=== PATIENT | female | born 1955 | race Caucasian/White ===

== ENCOUNTER 2018-08-29 14:13 | Emergency (ER) | payer BC, SELFPAY ==
--- NOTE | 2018-08-29 14:20 | W.ED.GENAD ---
Discharge Plan Disposition Patient Disposition: HOME Condition: Stable Discharge Details Chief Complaint: RashLesion Clinical Impression: Scabies Reason For Visit: rash Primary Care Provider: Avila Basurto ED Provider: Cassandra Almaraz Home Meds and New Rx's Prescriptions: New prednisone 50 mg tablet 50 mg PO DAILY Qty: 4 RF: 0 Discharge Instructions Instructions: Prednisone (By mouth), Permethrin (On the skin), Scabies (ED) Additional Instructions: Please return immediately to the emergency department if you develop any new or worsening symptoms or if you become otherwise concerned. It is extremely important that you make an appointment to be seen by you primary care doctor within the next 1-2 weeks in follow-up for this visit. 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 Papular rash to neck and scalp without vesicles. Suspect scabies. Exam/hx not c/w HSV, zoster, SJS, TEN, sepsis, other acute life threatening process. I did discuss the use of permethrin with ID at [facility], who recommended permethrin for scabies to scalp as opposed to other agents. Plan for permethrin, RX prednisone for symptomatic tx, outpt f/u. I had a lengthy dicsussion with the pt re: RTED precautions and importance of outpt f/u with PCP. Pt verbalized understanding of plan. Medical Records Medical records reviewed: Yes I reviewed the patient's medical records. HPI General Mode of arrival: ambulatory. Date/Time Provider Initiated Documentation: 08/29/18 14:20. Limitations to Documentation: no limitations. Information obtained by: patient, RN notes reviewed and old records reviewed. HPI Narrative: Tatiana Vora is a 62-year-old woman without history of major medical problems presenting to the emergency department with itching of her head and neck. Patient reports that approximately 5 days ago she developed itching of the back of her neck and of her posterior scalp, which has spread over her entire scalp. She reports itching is very intense. She has had a rash at the back of her neck and on her scalp in the area that is itchy. Rash is not painful and there is no drainage. She has had no fevers, no pain, no shortness of breath, no cough, no nausea/vomiting/diarrhea, no other rash. She feels otherwise very well and in her usual state of health. Eating and drinking as usual. No recent travel. 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 Related Data Home Medications Medication Instructions Recorded Confirmed prednisone 50 mg PO DAILY #4 tab 08/29/18 Previous Rx's Medication Instructions Recorded prednisone 50 mg PO DAILY #4 tab 08/29/18 Allergies Allergy/AdvReac Type Severity Reaction Status Date / Time venom-honey bee Allergy Unverified 08/29/18 14:31 [bee venom (honey bee)] Review of Systems Review of Systems Constitutional: denies fevers Eyes: denies eye pain ENT: denies facial pain, dental pain, sore throat Cardiovascular: denies chest pain Respiratory: denies SOB, cough GI: denies abdominal pain, vomiting, diarrhea : denies flank pain MSK: denies back pain, neck pain, arthralgias, myalgias Skin: reports rash Neuro: denies headaches, lightheadedness, weakness PFSH Social History Smoking/Tobacco Use Status: Never Exam Narrative Exam Narrative: Constitutional: well and [id number], pleasant, conversing normally HENT: head atraumatic, normocephalic normal inspection, mucous membranes moist Eyes: conjunctiva normal, sclera normal, pupils 3mm b/l Neck: no stridor, normal ROM, trachea midline Chest: normal inspection Resp: normal work of breathing Cardio: normal rate, normal rhythm Back: normal inspection, no rash Skin: warm, dry, normal color, papular rash in clusters/linear pattern to posterior neck and scalp. no vesicles. No mucous membrane invovlement. No surrounding erythema, no edema, no drainage. Neuro: alert, not altered, grossly non-focal, normal tone Ext: no edema Psych: normal mood, normal affect, normal behavior
[2018-08-29 14:22] VITALS: BP 124/76; PULSE 70; RESP 18; TEMP 36.6; O2SAT 100
[2018-08-29] MEDS: predniSONE 20 MG TAB 60 MG PO (16:29)
== END 2018-08-29 15:53 | disposition home or self-care (01) ==
LOC: ER 16:33
PROVIDERS: Emergency Provider Student in an Organized Health Care Education/Training Program; PCP Internal Medicine
DX: B86 Scabies (principal)
CPT/HCPCS: 99283; J7512

== ENCOUNTER 2019-06-25 18:46 | Emergency (ER) | payer BC, SELFPAY ==
[2019-06-25 18:49] VITALS: BP 134/75; PULSE 67; RESP 16; TEMP 37; O2SAT 99
--- NOTE | 2019-06-25 19:11 | DI.RAD_ITS ---
EXAM: XR HAND LT COMPLETE INDICATION: Dog bite, over fifth metacarpal. COMPARISON: No exams were available for comparison TECHNIQUE: 2D digital imaging was performed. FINDINGS: There is no evidence of an acute fracture or dislocation. There is no evidence of a foreign body. No te is made of mild soft tissue swelling over the region of the proximal interphalangeal joint of the ring finger.
--- NOTE | 2019-06-25 19:58 | DI.VRAD_ITS ---
PROCEDURE INFORMATION: Exam: XR Left Hand Exam date and time: 06/25/2019 19:39 Clinical history: 63 years old, female; Injury or trauma; Injury history: Dog bite; Initial encounter; Hand; Left; Injury date: Over 5th metacarpal TECHNIQUE: Imaging protocol: XR Left hand. Views: 3 or more views. COMPARISON: No relevant prior studies available. FINDINGS: Bones/joints: Small chronic densities adjacent to the ulnar styloid are suggestive of old avulsion fractures. Less likely chronic soft tissue trauma. Scattered interphalangeal degenerative changes are seen. First carpal metacarpal degenerative changes. No acute fracture or subluxation. Soft tissues: Benign calcifications in the soft tissues. No radiopaque foreign body or significant emphysema. IMPRESSION: No acute bony pathology. Dictated and Authenticated by: Gely Elizalde MD. Ordering:FRANCISCO Berger MD
[2019-06-25] MEDS: Amoxicillin 875/Clav. 125 TAB PO (20:38)
--- NOTE | 2019-06-25 20:41 | ED.GENADUL_ITS ---
Discharge Plan Disposition Patient Disposition: HOME Condition: Stable Discharge Details Chief Complaint: AnimalBite Clinical Impression: Dog bite of hand Primary Care Provider: Avila Basurto ED Provider: Ab Hensley Home Meds and New Rx's Prescriptions: New amoxicillin-pot clavulanate [Augmentin] 875-125 mg tablet 1 tab PO BID Qty: 10 RF: 0 Discharge Instructions Instructions: Animal Bite (ED) Additional Instructions: Watch for any signs of infection and return immediately if these occur. Otherwise keep wound clean and dry and initial dressing in place for 24 to 48 hours. If wound is healing well you may return in 10 days for suture removal. Stand Alone Forms: Work Release Referrals: [facility] Emergency Dept. [Outside] (In 10 days for suture removal or immediately for any signs of infection) Discharge Data Discharge Date/Time-TO BE ENTERED AT DEPARTURE: 06/25/19 20:50 Medical Decision Making Dog bite to hand approximately 1 hour prior to arrival 2.5 cm laceration. Radiological imaging ordered and is negative, verbal consent for wound closure, injected with 5 mL's of 2% lidocaine locally. Wound thoroughly irrigated and wound was visualized to base in bloodless field and no contamination was noted. Wound was closed with 4-0 Prolene and 3 simple interrupted sutures were placed. Patient placed upon Augmentin twice daily for 5 days, tetanus was updated, and discussed rabies prophylaxis but given domesticated dog that typically lives inside decided to defer this treatment at this time. Tetanus updated. After discussion of diagnosis and plan of care patient has no further needs, questions, or concerns and states clear understanding to return to the emergency department for any worsening symptoms. HPI General Mode of arrival: ambulatory . Date/Time Provider Initiated Documentation: 06/25/19 18:53 . Limitations to Documentation: no limitations . Information obtained by: patient and RN notes reviewed . History of Present Illness 63 year old F presents to the emergency department with the chief complaint of Dog bite, left hand, described as moderate, with intensity rated at 7. Quality is described as aching and sharp, and is localized to the left and upper extremity. Patient started experiencing this hour(s) (1) and it has been constant. No relieving factors improve symptom(s), No exacerbating factors reported . Patient notes no other symptoms.. Patient did receive the following treatments prior to arrival, none Related Data Home Medications Medication Instructions Recorded Confirmed amoxicillin-pot clavulanate 1 tab PO BID #10 tab 06/25/19 [Augmentin] Previous Rx's Medication Instructions Recorded amoxicillin-pot clavulanate 1 tab PO BID #10 tab 06/25/19 [Augmentin] Allergies Allergy/AdvReac Type Severity Reaction Status Date / Time venom-honey bee Allergy Unverified 08/29/18 14:31 [bee venom (honey bee)] General Stated Complaint: AnimalBite BYRON: 4 Review of Systems Cardiovascular Cardiovascular: Denies syncope and Denies lightheadedness Musculoskeletal Musculoskeletal: Denies deformity, Denies limited range of motion and Denies numbness Integumentary/Breasts Skin/Breast: Reports as per HPI Neurologic Neurologic: Denies syncope, Denies numbness and Denies paresthesias [facility] Social History Smoking/Tobacco Use Status: Never Alcohol Intake: current Drug use: Never Substance use type: does not use Do you feel safe at home: Yes Do you feel safe in your relationship?: Yes Exam Const General: cooperative and no acute distress Orientation: alert, awake and oriented x3 Limitations: mental status not altered Resp Effort & Inspection: normal respiratory effort and able to speak in complete sentences Cardio Rate: regular rate Rhythm: regular rhythm Neuro General: alert and awake Extrem General: normal exam except as noted Left upper extremity: hand Details: normal capillary refill, neuromotor exam normal, neurosensory exam normal, tendon exam normal, normal ROM of fingers and laceration (2.5cm) Course Vital Signs Vital signs: Vital Signs Temperature 37 C 06/25/19 18:49 Pulse 67 06/25/19 18:49 Respiratory Rate 16 06/25/19 18:49 Blood Pressure 134/75 06/25/19 18:49 Pulse Oximetry 99 06/25/19 18:49 Temperature 37 C 06/25/19 18:49 Pulse 67 06/25/19 18:49 Respiratory Rate 16 06/25/19 18:49 Respiratory Effort Non-Labored 06/25/19 19:11 Blood Pressure 134/75 06/25/19 18:49 Pulse Oximetry 99 06/25/19 18:49 Oxygen Delivery Method Room Air 06/25/19 18:49 Oxygen Flow Rate 0 06/25/19 18:49 Pain Level 7 06/25/19 18:49
--- NOTE | 2019-06-25 20:46 | NUR.NOTE ---
sutures placed by practioner band aid applied to site Nursing Note:
--- NOTE | 2019-06-26 08:09 | NUR.NOTE ---
Nursing Note: Animal bite report faxed to [facility]. Rimma Uribe.
== END 2019-06-25 20:50 | disposition home or self-care (01) ==
PROVIDERS: Emergency Provider Nurse Practitioner Family; PCP Internal Medicine
DX: S61.452A Open bite of left hand, initial encounter (principal); W54.0XXA Bitten by dog, initial encounter
CPT/HCPCS: 12001; 90471; 99283; 73130

== ENCOUNTER 2021-10-25 09:37 | Emergency (ER) | payer BC, SELFPAY ==
[2021-10-25 09:42] VITALS: BP 138/72; PULSE 63; RESP 14; TEMP 36.4; O2SAT 100
--- NOTE | 2021-10-25 10:00 | DI.CT_ITS ---
Exam(s) CT HEAD WO EXAM: CT HEAD WO CLINICAL HISTORY: head injury . TECHNIQUE: Imaging Protocol: Axial computed tomography images with coronal and sagittal reformatted images were created and reviewed COMPARISON: No exams were available for comparison FINDINGS: There are no skull fractures nor fluid in the visualized paranasal sinuses. There is no evidence of intracranial hemorrhage, mass effect, or shift of midline structures. There are no extra-axial fluid collections. The ventricles are not enlarged or shifted and there is no blo od within the ventricular system nor within the basal cisterns. IMPRESSION: No acute intracranial findings on this noninfused CT scan of the brain. RADIATION DOSE DELIVERED: 706.48mGy.cm Total DLP DATA REPOSITORY: All CT scans at this facility are submitted to the National Radiology Data Registry (NRDR) Dose Index Registry (DIR) with the [employer] (ACR). RADIATION OPTIMIZATION: All CT scans at this facility use at least one of these dose optimization te chniques: automated exposure control; mA and/or kV adjustment per patient size (includes targeted exa ms where dose is matched to clinical indication); or iterative reconstruction.
--- NOTE | 2021-10-25 10:18 | ED.GENADUL_ITS ---
Discharge Plan Disposition Patient Disposition: HOME Condition: Stable Discharge Details Chief Complaint: Headache Clinical Impression: Head injury, Shortness of breath Primary Care Provider: Avila Basurto ED Provider: Nicola Vides Discharge Instructions Instructions: Dyspnea (ED), Head Injury (ED) Additional Instructions: Your head CT is unremarkable. As we discussed, brain rest for the next 2-3 days and please avoid any activities that would high in your chance for an additional head injury. [id number] Tylenol and/or Motrin as directed for discomfort. Your Covid test is pending and will likely result in the next 3 days, I recommend quarantining until this test has resulted negative. You have declined any additional work-up for your shortness of breath. Please watch for new or worsening symptoms and return to the ER for any concerns. Otherwise contact your primary care provider to discuss your ER visit and need for outpatient reevaluation. Medical Decision Making 66-year-old female, denies significant past medical history, was skiing Monday when she fell forward hitting the top of her head, she was wearing a helmet. Denies any obvious LOC. Since that time has had intermittent headaches. Mild nausea but none now. She contacted her primary care provider and they recommended coming to the ER. She does tell me that she is fully vaccinated against COVID yesterday when snowshoeing felt slightly short of breath. 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 She denies any other symptoms, fever, cough, chest pain, pain or swelling in her legs. She currently has no shortness of breath whatsoever. She states that she associated the shortness of breath with the head injury. She is agreeable to obtaining a head CT given her head injury but does not want additional work-up for her shortness of breath, laboratory values, IV, chest imaging, etc. She is agreeable to obtaining a send out Covid swab. Clinically she appears well, nontoxic, neurologically intact, no evidence of tachycardia, her O2 sat is 100% on room air. Patient does understand the risk of not being evaluated for her shortness of breath. Covid test pending Head CT read by radiology as unremarkable. Discussed CT imaging with the patient. Discussed standard CDC quarantine recommendations. Patient has no additional questions or concerns. Standard discharge and return precautions were provided This documentation was generated using Dragon dictation system, please disregard any oddities of phrase or misspellings. Medical Records Medical records reviewed: Yes I reviewed the patient's medical records. Imaging Data Radiologic Study: Attestation: I personally reviewed and interpreted this imaging study as follows: Imaging: CT Scan Radiologist's impression: Exam(s) CT HEAD WO EXAM: CT HEAD WO CLINICAL HISTORY: head injury monday, . TECHNIQUE: Imaging Protocol: Axial computed tomography images with coronal and sagittal reformatted images were created and reviewed COMPARISON: No exams were available for comparison FINDINGS: There are no skull fractures nor fluid in the visualized paranasal sinuses. There is no evidence of intracranial hemorrhage, mass effect, or shift of midline structures. There are no extra-axial fluid collections. The ventricles are not enlarged or shifted and there is no blood within the ventricular system nor within the basal cisterns. IMPRESSION: No acute intracranial findings on this noninfused CT scan of the brain. HPI General Mode of arrival: ambulatory . Date/Time Provider Initiated Documentation: 10/25/21 09:38 . Limitations to Documentation: no limitations . Information obtained by: patient . History of Present Illness 66 year old F presents to the emergency department with the chief complaint of Head injury, described as moderate, with intensity rated at 4. Quality is described as aching (pressure), and is localized to the head. Patient reports no radiation. Patient started experiencing this day(s) (2) and it has been constant. No relieving factors improve symptom(s), No exacerbating factors reported . Patient notes shortness of breath. Patient did receive the following treatments prior to arrival, none Related Data Allergies Allergy/AdvReac Type Severity Reaction Status Date / Time venom-honey bee Allergy Unverified 10/25/21 09:59 [bee venom (honey bee)] General Stated Complaint: Headache BYRON: 3 Review of Systems Constitutional Constitutional: Denies fever(s), Reports headache(s) and Denies weakness Eyes Eyes: Denies change in vision ENT Ears, Nose, Mouth, and Throat: Reports headache(s) and Denies neck pain Cardiovascular Cardiovascular: Denies chest pain and Denies dyspnea Respiratory Respiratory: Denies dyspnea Gastrointestinal Gastrointestinal: Reports nausea and Denies vomiting Musculoskeletal Musculoskeletal: Denies back pain, Denies neck pain, Denies numbness and Denies tingling Neurologic Neurologic: Reports headache(s), Denies numbness, Denies tingling and Denies weakness PFSH All Active Problems (Updated 10/25/21 @ 11:42 by JAYLIN Hernandez) Head injury (Acute) Shortness of breath (Acute) Social History Smoking/Tobacco Use Status: Never Smoking risk assessment performed?: Yes Alcohol Intake: current Alcohol Intake frequency: a few times a month Alcohol type: beer and wine Drug use: Never Substance use type: does not use Do you feel safe at home: Yes Do you feel safe in your relationship?: Yes Exam Const General: cooperative, healthy appearing, comfortable and no acute distress Orientation: alert, awake and oriented x3 HENMT Head: normal to inspection, normocephalic and atraumatic Face and sinus: normal facial exam Mouth: moist mucous membranes Eyes General: appearance normal, both eyes and all related structures Alignment and Position: alignment normal Periorbital: periorbital findings normal Eyelids: eyelids normal Conjunctivae: conjunctivae normal Sclera: sclerae normal Cornea: corneas normal Pupils: PERRL EOM: EOM intact bilaterally Direct ophthalmoscopy: normal light reflex Neck Neck: normal visual inspection, full ROM, trachea midline, supple and nontender Resp Effort & Inspection: normal respiratory effort and able to speak in complete sentences Auscultation: clear to auscultation bilaterally Cardio Rate: regular rate Rhythm: regular rhythm Skin General skin exam: no rashes or lesions noted Neuro General: patient alert, patient awake, patient oriented x3, moves all extremities and no focal motor deficits Cranial Nerves: CN's II-XI intact bilaterally Cognition: normal cognition Speech: speech normal Gait: normal gait Motor: muscle tone normal throughout Sensory Exam: no sensory deficits noted Extrem General: normal to inspection, full ROM, capillary refill normal, no pedal edema and no calf tenderness Psych Appearance: grossly normal Mental Status: mental status grossly normal Course Vital Signs Vital signs: Vital Signs Temperature 36.4 C L 10/25/21 09:42 Pulse 63 10/25/21 09:42 Respiratory Rate 14 10/25/21 09:42 Blood Pressure 138/72 10/25/21 09:42 Pulse Oximetry 100 10/25/21 09:42 Temperature 36.4 C L 10/25/21 09:42 Temperature Source Temporal Artery Scan 10/25/21 09:42 Pulse 63 02/07/22 09:42 Respiratory Rate 14 10/25/21 09:42 Respiratory Effort 10/25/21 09:53 Blood Pressure 138/72 10/25/21 09:42 Blood Pressure Position Sitting 10/25/21 09:42 Pulse Oximetry 100 10/25/21 09:42 Oxygen Delivery Method Room Air 10/25/21 09:42 Oxygen Flow Rate 0 10/25/21 09:42 PAWSS Have you Been Recently Intoxicated or Drunk Within the Last 30 days?: No Have you Ever Experienced Previous Episodes of Alcohol Withdrawal?: No Have you ever Experienced Withdrawal Seizures?: No Have you ever Experienced Delirium Tremens(DT)s?: No Have you ever undergone Alcohol Rehabilitation Treatment (i.e, inpt ot outpatient treatment programs)?: No Have you ever Experienced Blackouts?: No Have you ever Combined Alcohol with other Downers within the last 90 days?: No Have you ever Combined Alcohol with any other Substance of Abuse during the last 90 days?: No Positive Blood Alcohol level on Presentation? [PCS.BAL]: No Evidence of Increased Autonomic Activity (i.e. HR>120, tremor, sweating, agitation, nausea)?: No Result: 0
[2021-10-25 11:53] VITALS: BP 112/61; PULSE 61; RESP 14; TEMP 36.7; O2SAT 100
[2021-10-26 13:17] LABS: COVID-19 RT-PCR UVMMC Result Negative (Negative)
== END 2021-10-25 11:57 | disposition home or self-care (01) ==
PROVIDERS: Emergency Provider Physician Assistant; PCP Internal Medicine
DX: S09.8XXA Other specified injuries of head, initial encounter (principal); V00.321A Fall from snow-skis, initial encounter; R51.9 Headache, unspecified; R06.02 Shortness of breath; Z20.822 Contact with and (suspected) exposure to COVID-19
CPT/HCPCS: 99283; 99284; U0003; 70450

== ENCOUNTER → 2022-08-15 02:01 | Outpatient (CLI) | payer BC, SELFPAY ==
--- NOTE | 2022-08-15 | DI.MRI_ITS ---
Exam(s) MR LOWER JOINT RT WO EXAM: MR LOWER JOINT RT WO CLINICAL HISTORY: INTERNAL DERANGEMENT RT KNEE M23.91 SUSPECTED MENISCUS TEAR. TECHNIQUE: Multiplanar multisequence MRI was performed. COMPARISON: CR XR KNEE 4 VIEW RIGHT from 11/11/2021 FINDINGS: Exam mildly limited by patient motion. In BONES: Artifact from screw in the proximal tibia. JOINTS: No joint effusion is present. Articular cartilage: Patellofemoral joint: Articular cartilage is unremarkable. Medial femoral tibial joint: Cartilage thinning and irregularity with a small focus of marrow edema at the level of the posterior horn. Lateral femoral tibial joint: Thinning of cartilage extending down to bone at the level of the poste rior horn with underlying high signal in the marrow. TENDONS: Extensor mechanism: Unremarkable. Medial retinaculum: Unremarkable. Lateral retinaculum: Unremarkable. Popliteus: Unremarkable. MUSCLES: Unremarkable. MENISCI: The medial meniscus shows a horizontally oriented tear in the posterior horn extending to th e inferior articular surface. The body appears diminutive. Findings could be degenerative or postsu rgical. No displaced fragment is seen. The lateral meniscus shows some intrasubstance signal which could be secondary to chondrocalcinosis seen on plain films.. SOFT TISSUES: Unremarkable. LIGAMENTS: Anterior Cruciate: Status post ACL repair which appears intact. Posterior Cruciate: Unremarkable. Medial Collateral:Unremarkable. Lateral Collateral: Unremarkable. OTHER: IMPRESSION: Inferior surfacing tear of the posterior horn of the medial meniscus. Intact ACL repair. Chondromalacia of both femoral condyles, lateral greater than medial. DATA REPOSITORY:
== END ==
PROVIDERS: PCP Internal Medicine; Visit Provider Specialist
DX: M23.8X1 Other internal derangements of right knee (principal); M25.561 Pain in right knee; S83.241A Other tear of medial meniscus, current injury, right knee, initial encounter; Z98.890 Other specified postprocedural states
CPT/HCPCS: 73721